=== PATIENT | female | born 1975 ===

== ENCOUNTER 2024-09-07 17:57 | Outpatient (REF) | payer BC, SELFPAY | END 2024-09-07 17:58 | disposition home or self-care (01) | LOC: NCHCN 17:57 | PROVIDERS: Visit Provider Family Medicine | DX: J02.9 Acute pharyngitis, unspecified (principal) | CPT/HCPCS: 87070 ==

== ENCOUNTER 2024-10-20 22:10 | Outpatient (REF) | payer BC, SELFPAY ==
[2024-10-20 22:05] LABS: Glucose Negative (Negative)
== END 2024-10-20 22:11 | disposition home or self-care (01) ==
LOC: LBN 22:10
PROVIDERS: Visit Provider Physician Assistant
DX: R30.0 Dysuria (principal)
CPT/HCPCS: 81003; 87086